=== PATIENT | male | born 1990 | race Caucasian/White ===

== ENCOUNTER 2023-01-08 10:36 | Day surgery (SDC) | payer OTHER ==
[~2023-01-08] VITALS: Ht 170.2 cm; Wt 80.4 kg
[2023-01-08 10:57] VITALS: BP 130/83; PULSE 57; TEMP 98.6
[2023-01-08] MEDS ORDERED: TOPROL XL 25MG25 MG PO (11:04)
[2023-01-08] MEDS ORDERED: LIPITOR20 MG PO (11:04)
--- NOTE | 2023-01-08 14:22 | NUR ---
Pt ambulated to [facility], scheduled for a loop recorder placement. Meds and HX reviewed with the pt. Consent form for the procedure signed. Loop recorder placement done. Discharge education and information given to the pt. No questions or concerns at this time. Pt exited the unit with a steady gait.
== END 2023-01-08 13:59 | disposition home or self-care (01) ==
LOC: COL.CAR 10:36
DX: R00.2 Palpitations (principal); I49.3 Ventricular premature depolarization; E78.5 Hyperlipidemia, unspecified; I47.20 Ventricular tachycardia, unspecified